=== PATIENT | female | born 1975 | race Asian ===

== ENCOUNTER 2018-12-07 11:09 | Emergency (ER) | payer OTHER, SELFPAY ==
[2018-12-07 11:19] VITALS: BP 150/97; PULSE 87; RESP 17; TEMP 36.9; O2SAT 100
--- NOTE | 2018-12-07 12:09 | ED_ITS ---
HPI - Headache <Marika Ceja PA-C - Last Filed: 12/07/18 21:53> General Chief Complaint: Headache Stated Complaint: back of head really hurts Time Seen by Provider: 12/07/18 12:06 Source: patient Mode of arrival: ambulatory Limitations: no limitations History of Present Illness HPI Narrative: This 43-year-old female states that she was sent to ED [place]. She states that for the last couple of days, she has had episodes where she feels ?uneasy?, and will get some tension headache along with ?tightness? in her throat and sensation of difficulty breathing. She states that she does not get chest pain, but can get some palpitations. She states that she has a sensation of shakiness and tension in the back of her shoulders. She states it gets hard for her to focus. She gets a feeling like things are closing in. She states that she started having these symptoms off and on a couple of years ago, mainly with having to drive a long distance, which makes her nervous, but occasionally can get at other times. She states that 2 nights ago, she was seen at another local emergency room because symptoms occurred while she was cooking dinner. She states that she was having palpitations and shakes, and had the same ?uneasy? closing in feeling. She states that lab work and EKG and urinalysis were done and all normal. She states that [place] well. She states that she started to the feel this again today work and so was sent here. She states that symptoms typically resolve when she starts to feel calmer. She states she is healthy other than a history of hypertension for which she takes lisinopril. She states that she works out regularly and notes that she has had some decreased appetite and feels a little bit more weak lately in general, but feels better when she works out. She does not tend to get the symptoms when she is working out Related Data Home Medications Medication Instructions Recorded Confirmed lisinopril 10 mg PO DAILY 12/07/18 12/07/18 Allergies Allergy/AdvReac Type Severity Reaction Status Date / Time No Known Drug Allergies Allergy Verified 12/07/18 11:27 Review of Systems <Marika Ceja PA-C - Last Filed: 12/07/18 21:53> Review of Systems ROS Unobtainable: All systems reviewed & are unremarkable except as noted in HPI and below <DO Sherri Paris Last Filed: 12/08/18 07:52> Review of Systems ROS Unobtainable: All systems reviewed & are unremarkable except as noted in HPI and below PFSH <Marika Ceja PA-C - Last Filed: 12/07/18 21:53> Medical History Hypertension (Chronic) Social History Smoking Status: Never smoker Social History Smoking Status: Never smoker Comment: No ETOH or street drugs Exam <Marika Ceja PA-C - Last Filed: 12/07/18 21:53> Narrative Exam Narrative: GENERAL APPEARANCE: Patient sitting comfortably, in no distress. HEENT: PERRL, EOMI, normal TMs and oropharynx NECK: Supple, no masses LUNGS: Clear to auscultation bilaterally. HEART: Rate and rhythm regular without murmur, normal S1 and S2, no S3 or S4. ABDOMEN: Soft, NT, ND, + BS x 4 quadrants NEUROLOGIC: Alert and oriented, normal speech, gait and coordination. MUSCULOSKELETAL: Full Csp AROM, mild tenderness over the posterior cervical musculature DERM: No exanthem Initial Vital Signs Initial Vital Signs: Vital Signs Temperature 98.5 F 12/07/18 11:19 Pulse Rate 87 12/07/18 11:19 Respiratory Rate 17 12/07/18 11:19 Blood Pressure 150/97 H 12/07/18 11:19 Pulse Oximetry 100 12/07/18 11:19 <Eli Hathaway DO - Last Filed: 12/08/18 07:52> Initial Vital Signs Initial Vital Signs: Vital Signs Temperature 98.5 F 12/07/18 11:19 Pulse Rate 87 12/07/18 11:19 Respiratory Rate 17 12/07/18 11:19 Blood Pressure 150/97 H 12/07/18 11:19 Pulse Oximetry 100 12/07/18 11:19 Course <Marika Ceja PA-C - Last Filed: 12/07/18 21:53> Additional Information: Discussed with patient given her previously normal testing and her history of symptoms which seem to correlate with anxiety, she is most likely having panic attacks. We discussed whether she wants a little bit of medication to have on hand for this until she can follow-up however she is seeing her PCP in the morning and will discuss further at that time. Orders Ordered: ED Orders 12/07/18 13:16 EKG-12 Lead Stat Vital Signs - 8 hr 12/07/18 11:19 Temperature 98.5 F Pulse Rate 87 Respiratory Rate 17 Blood Pressure 150/97 H Pulse Oximetry 100 <Eli Hathaway, - Last Filed: 12/08/18 07:52> Orders Ordered: ED Orders 12/07/18 13:16 EKG-12 Lead Stat Vital Signs - 8 hr 12/07/18 11:19 Temperature 98.5 F Pulse Rate 87 Respiratory Rate 17 Blood Pressure 150/97 H Pulse Oximetry 100 Discharge Plan Departure Patient Disposition: Home Clinical Impression: Panic attacks, Tension headache, Heart palpitations Discharge Date/Time: 12/07/18 13:56 Interventions: ED Discharge Assessment Last Done: 12/07/18 13:55 Instructions: Tension Headache, DI for Panic Disorder Activity Restrictions/Additional Instructions: I believe that the symptoms you have been experiencing the last couple of days are a variation of what you have experienced over the last couple of years when you half to drive long distances. I think you are having mild panic attacks, especially since you feel anxious when the symptoms happen. I reviewed your lab work and EKG from yesterday and new EKG from today which did not show any heart rhythm problem. Your heart rate was normal and regular. it sounds like you have already had your thyroid tested with primary care but please double check this when you visit tomorrow. Sometimes behavioral treatment such as deep breathing and meditation are enough to help with this. if panic attacks happen frequently and are interfering with daily activities consistently like they have this week, you may want to consider taking a daily anxiety medication to help prevent that, and having a small amount of a medicine like Ativan on hand to treat the occasional more severe attacks ( this is what you received at the other emergency room yesterday). You could also consider changing your blood pressure medicine to something called a beta-eugenia, which could also help control symptoms. Please discuss this with your PCP tomorrow, and you should return to the nearest ED should you have any acute changes or worsening symptoms in the interim. Thank you for your service! Prescriptions: No Action lisinopril 10 mg Tablet 10 mg PO DAILY RF: 0 [facility] [Provider Group] <Eli Hathaway, DO - Last Filed: 12/08/18 07:52> Cosign ED Attending Cosignature Attestation: I was immediately available in the department for consultation. Documentation has been reviewed. I agree with assessment and plan.
[2018-12-07 13:25] VITALS: BP 131/90; PULSE 77; RESP 16; O2SAT 96
== END 2018-12-07 13:56 | disposition home or self-care (01) ==
PROVIDERS: Emergency Provider Internal Medicine
DX: F41.0 Panic disorder [episodic paroxysmal anxiety] (principal); G44.209 Tension-type headache, unspecified, not intractable; R00.2 Palpitations
CPT/HCPCS: 93005; 99282; 99283

== ENCOUNTER → 2020-04-23 16:13 | Outpatient (CLI) | payer OTHER, SELFPAY ==
--- NOTE | 2020-04-23 16:16 | DI.MG.S_ITS ---
BILATERAL DIGITAL SCREENING MAMMOGRAM 3D/2D WITH CAD: 04/23/2020 CLINICAL: Routine screening. Comparison is made to exam dated: 10/08/2017 mammogram - [facility]. The tissue of both breasts is extremely dense, which lowers the sensitivity of mammography. Current study was also evaluated with a Computer Aided Detection (CAD) system. No significant masses, calcifications, or other findings are seen in either breast. There has been no significant interval change. IMPRESSION: NEGATIVE There is no mammographic evidence of malignancy. A 1 year screening mammogram is recommended. This exam was interpreted at Station ID: [id number]. NOTE: For mammograms, a report in lay terms will be sent to the patient. Approximately 15% of breast malignancies will not be visualized mammographically. In the management of a palpable breast mass, a negative mammogram must not discourage biopsy of a clinically suspicious lesion. Electronically Signed By: Jessica bazan/barb:04/23/2020 17:03:36 letter sent: Normal Exam ACR BI-RADS Category 1: Negative [id number]
== END ==
PROVIDERS: Referring Provider Pharmacist; Visit Provider Pharmacist
DX: Z12.31 Encounter for screening mammogram for malignant neoplasm of breast (principal)
CPT/HCPCS: 77063; 77067